=== PATIENT | male | born 1955 | race Caucasian/White ===

== ENCOUNTER 2016-08-09 07:04 | Day surgery (SDC) | payer BC ==
[2016-08-09] MEDS: Lactated Ringers 1,000 ML IV SCH ×2 (08:51→09:58)
[2016-08-09] MEDS ORDERED: Propofol 200 MG/20 ML SDV ONE ×2 (09:11→09:41)
[2016-08-09 11:16] VITALS: BP 127/71
--- NOTE | 2016-08-09 13:55 | OR ---
DATE OF SURGERY: 08/09/2016. REFERRING PROVIDER: Mary Grace Gordon DO. PREOPERATIVE DIAGNOSES: 1. History of colon polyps. Last colonoscopy was 3 years ago and 3 small polyps ranging in size from 1 to 4 mm were removed. 2. Positive family history of colon cancer in the patient's sister, who was diagnosed in her late 40s. POSTOPERATIVE DIAGNOSES: 1. Incomplete colonoscopy, but I was able to reach hepatic flexure. 2. Tortuous transverse colon. 3. Moderately poor prep with copious particular liquid stool present. This was mostly able to be suctioned, but did plug the scope a few times. PROCEDURE: Colonoscopy (but only able to reach the hepatic flexure). SURGEON: Bradley Benavidez M.D. ANESTHESIA: Monitored anesthesia care. BOWEL PREP: Moderately poor. Mickey is a 61-year-old male who was brought to the endoscopy suite after discussing risks and benefits of the procedure. Informed consent was obtained for conscious sedation and colonoscopy with or without biopsy and/or polypectomy. We also discussed possibility of missed lesions. Pre-procedure exam was unremarkable. IV, oxygen, and monitors were placed. The patient was placed in the left lateral decubitus position. Sedation was administered and a digital rectal exam was performed which unremarkable. Colonoscope was passed into the rectum and slowly advanced. The patient had rather tortuous transverse colon. Multiple maneuvers including rolling the patient on his back, with abdominal pressure, scope stiffening were attempted. Entire scope had been inserted, but was only able to reach the hepatic flexure. Photograph was taken at this point, and then the colonoscope was slowly withdrawn and the mucosa was closed observed in a direct circumferential manner. The patient was noted to have moderately poor prep with copious particular liquid stool. Most of this was eventually able to be suctioned out resulting in fair viewing of the remainder of the colon. The transverse colon was unremarkable. The descending colon was unremarkable. The sigmoid colon was unremarkable. Retroflexion was performed, and rectal mucosa was unremarkable. Scope was removed. The patient tolerated the procedure well. The patient was monitored until that baseline status. Discharge instructions were reviewed and the patient was discharged in good condition. COMPLICATIONS: None. TOTAL TIME: 35 minutes. ESTIMATED BLOOD LOSS: None. RECOMMENDATIONS/FOLLOW-UP: After reviewing the patient's previous colonoscopy report, which showed 3 tiny polyps with the largest being 4 mm in size, I think the patient can simply plan a repeat here in the next 2 years. We did also discuss other options including barium enema to view the right colon or having gastroenterology in [place] attempt to intubate the cecum. For the moment, the patient is okay with just early repeat colonoscopy. I do recommend any future scopes be done with propofol sedation given the tortuous transverse colon. I would like to kindly thank Mary Grace Gordon for this referral. DMB: 08/09/2016 11:55:48 MODL: 08/09/2016 13:33:03 /[id number] MTDD
== END 2016-08-09 11:25 | disposition home or self-care (01) ==
LOC: VM.SDS 07:04
PROVIDERS: ATTEND Family Medicine
DX: Q43.8 Other specified congenital malformations of intestine (principal); J30.81 Allergic rhinitis due to animal (cat) (dog) hair and dander; Z91.09 Other allergy status, other than to drugs and biological substances; Z98.890 Other specified postprocedural states; Z79.899 Other long term (current) drug therapy
CPT/HCPCS: 45378; J2704; J7120

== ENCOUNTER 2018-07-08 11:05 | Emergency (ER) | payer BC ==
--- NOTE | 2018-07-08 12:10 | CR ---
[id number] RAD/RAD Chest PA And Lateral EXAM: RAD Chest PA And Lateral INDICATION: SYNCOPE,BRADYCARDIA. COMPARISON: None. DISCUSSION: Cardiomediastinal silhouette is normal in size and contour. No infiltrate, effusion, pneumothorax, or edema. IMPRESSION: No acute cardiopulmonary abnormality. Frank Medrano DO 07/08/18 [id number] Thank you for allowing us to participate in the care of your patient.
[2018-07-08 12:16] LABS: CHLORIDE,CL 102 mmol/L (98-107); SODIUM,NA 138 mmol/L (136-145)
[2018-07-08 12:21] LABS: ANION GAP 12.9 mmol/L (10-20)
[2018-07-08 14:10] VITALS: BP 134/75
--- NOTE | 2018-07-08 15:02 | EDM.PDOC ---
ED HPI GENERAL MEDICAL PROBLEM - General Chief Complaint: Chest Pain Time Seen by Provider: 07/08/18 11:25 Source of Information: Reports: Patient History Limitations: Reports: No Limitations (MrCayden ) - History of Present Illness INITIAL COMMENTS - FREE TEXT/NARRATIVE: Mr. Galeas presents to ER with complaints of sharp substernal chest discomfort, profound diaphoresis, and lightheadedness/near syncope. States that the episode only lasted a few minutes and resolved very abruptly. He states that the discomfort did not radiate into his jaw, arms, neck or back. He was not appreciably short of breath. He denies any nausea. No abdominal pain. Denies any increased peripheral edema. He denies any pervious episodes of chest pain or lightheadedness. He is a non- smoker. He did have a cardiac stress test which did show moderate calcification in his coronaries (calcium index of 190). He does have a history of hyperlipidemia and HTN. He has a remote history of syncope in 2013. Pt. states that he was started on Prozac within the month as well and does have a history of anxiety. Onset: Today Onset Date: 07/08/18 Location: Reports: Chest Quality: Reports: Sharp, Stabbing Severity: Moderate Worsens with: Denies: Breathing Associated Symptoms: Reports: Diaphoresis - Related Data Allergies Allergy/AdvReac Type Severity Reaction Status Date / Time dogs Allergy Other Uncoded 07/08/18 11:21 dust mite extract Allergy Other Uncoded 07/08/18 11:21 grasses Allergy Other Uncoded 07/08/18 11:21 Home Meds: Home Meds Aspirin [Halfprin] 81 mg PO DAILY 08/03/13 [History] Cyanocobalamin (Vitamin B-12) [Vitamin B-12] 1,000 mcg PO DAILY 08/03/13 [ History] Fexofenadine [Berenice] 180 mg PO DAILY 08/03/13 [History] Fluticasone Propionate [Flonase] 2 sprays NASBOTH DAILY 08/03/13 [History] Ibuprofen [Motrin Ib] 400 - 600 mg PO Q4H PRN 08/03/13 [History] Multivitamin [Multivitamins] 1 tab PO DAILY 08/03/13 [History] Pony-3 Fatty Acids [Pony-3] 1,000 mg PO DAILY 08/03/13 [History] atorvaSTATin [Lipitor] 20 mg PO BEDTIME 08/03/13 [History] Ascorbic Acid [Vitamin C] 500 mg PO DAILY 08/13/13 [History] ALPRAZolam [Alprazolam] 0.25 mg PO TID PRN 07/08/18 [History] Beta-Carotene(A) W-C & E/Min [Vision Vitamins] 2 tab PO BID 07/08/18 [History] FLUoxetine [PROzac] 10 mg PO DAILY 07/08/18 [History] Past Medical History HEENT History: Reports: Allergic Rhinitis, Other (See Below) Other HEENT History: presbyopia Cardiovascular History: Reports: High Cholesterol, Syncope Respiratory History: Reports: None Gastrointestinal History: Reports: Colon Polyp Genitourinary History: Reports: None Musculoskeletal History: Reports: Arthritis, Back Pain, Chronic Psychiatric History: Reports: Depression Hematologic History: Reports: None Immunologic History: Reports: None Oncologic (Cancer) History: Reports: Squamous Cell Carcinoma, Other (See Below) Other Oncologic History: skin cancer, basal cell Dermatologic History: Reports: None - Past Surgical History Head Surgeries/Procedures: Reports: None Respiratory Surgical History: Reports: None Male Surgical History: Reports: None Endocrine Surgical History: Reports: None Neurological Surgical History: Reports: None Musculoskeletal Surgical History: Reports: Other (See Below) Dermatological Surgical History: Reports: Skin Biopsy Social & Family History - Family History Family Medical History: Noncontributory - Tobacco Use Smoking Status *Q: Never Smoker - Recreational Drug Use Recreational Drug Use: No ED ROS GENERAL - Review of Systems Review Of Systems: See Below Constitutional: Reports: No Symptoms HEENT: Reports: No Symptoms Respiratory: Reports: No Symptoms Cardiovascular: Reports: Chest Pain, Lightheadedness, Other (near syncope) Endocrine: Reports: No Symptoms GI/Abdominal: Reports: No Symptoms : Reports: No Symptoms Musculoskeletal: Reports: No Symptoms Skin: Reports: No Symptoms Neurological: Reports: No Symptoms Psychiatric: Reports: No Symptoms Hematologic/Lymphatic: Reports: No Symptoms Immunologic: Reports: No Symptoms ED EXAM, GENERAL - Physical Exam Exam: See Below Exam Limited By: No Limitations General Appearance: Alert, WD/WN, No Apparent Distress Throat/Mouth: Normal Inspection, Normal Lips, Normal Teeth, Normal Gums, Normal Oropharynx, Normal Voice, No Airway Compromise Head: Atraumatic, Normocephalic Neck: Normal Inspection, Supple, Non-Tender, Full Range of Motion Respiratory/Chest: No Respiratory Distress, Lungs Clear, Normal Breath Sounds, No Accessory Muscle Use, Chest Non-Tender Cardiovascular: Normal Peripheral Pulses, Regular Rate, Rhythm, No Edema, No Gallop, No JVD, No Rub Peripheral Pulses: 4+: Radial (L), Radial (R), Posterior Tibial (L), Posterior Tibial (R) GI/Abdominal: Normal Bowel Sounds, Soft, Non-Tender, No Organomegaly, No Distention, No Mass (Male) Exam: Deferred Rectal (Males) Exam: Deferred Back Exam: Normal Inspection, Full Range of Motion, NT Extremities: Normal Inspection, Normal Range of Motion, Non-Tender, Normal Capillary Refill, No Pedal Edema Neurological: Alert, Oriented, CN II-XII Intact, Normal Cognition, Normal Gait, Normal Reflexes, No Motor/Sensory Deficits Psychiatric: Normal Affect, Normal Mood Skin Exam: Warm, Dry, Intact, Normal Color, No Rash Lymphatic: No Adenopathy Course - Vital Signs Last Recorded V/S: Last Vital Signs Temp 36.9 C 07/08/18 14:06 Pulse 78 07/08/18 14:06 Resp 18 07/08/18 14:06 BP 134/75 07/08/18 14:06 Pulse Ox 96 07/08/18 14:06 - Orders/Labs/Meds Orders: Active Orders 24 hr Category Date Time Status EKG Documentation Completion [RC] STAT Care 07/08/18 11:30 Active Labs: Laboratory Tests 07/08/18 07/08/18 07/08/18 Range/Units 11:35 11:35 11:35 WBC 6.2 (4.0-10.0) x10^3/uL RBC 5.06 (4.5-6.0) x10^6/uL Hgb 15.8 (14.0-18.0) g/dL Hct 47.1 (40.0-52.0) % MCV 93.1 H (78.0-93.0) fL MCH 31.2 (26.0-32.0) pg MCHC 33.5 (32.0-36.0) g/dL RDW Coeff of Inocencio 13.3 (10.0-15.0) % Plt Count 211 (130-400) x10^3/uL Neut % (Auto) 63.8 (50.0-80.0) % Lymph % (Auto) 22.8 L (25.0-50.0) % Jay % (Auto) 10.7 (2.0-11.0) % Eos % (Auto) 2.4 (0.0-4.0) % Baso % (Auto) 0.3 (0.2-1.2) % PT 11.8 H (9.6-11.4) SEC INR 1.1 L (2.0-3.5) D-Dimer, Quantitative 0.44 (<=0.58) mg/LFEU Sodium 138 (136-145) mmol/L Potassium 3.9 (3.5-5.1) mmol/L Chloride 102 (98-107) mmol/L Carbon Dioxide 27 (21-32) mmol/L Anion Gap 12.9 (10-20) mmol/L BUN 24 H (7-18) mg/dL Creatinine 1.1 (0.70-1.30) mg/dL Est Cr Clr Drug Dosing 75.66 mL/min Estimated GFR (MDRD) > 60 Glucose 112 H (74-106) mg/dL Calcium 9.2 (8.5-10.1) mg/dL Corrected Calcium 9.12 (8.5-10.1) mg/dL Total Bilirubin 0.8 (0.2-1.0) mg/dL AST 23 (15-37) U/L ALT 29 (16-63) U/L Alkaline Phosphatase 80 (46-116) U/L Troponin I < 0.017 (<=0.056) ng/mL C-Reactive Protein 0.2 (<=0.9) mg/dL Total Protein 7.2 (6.4-8.2) g/dL Albumin 4.1 (3.4-5.0) g/dL Globulin 3.1 Albumin/Globulin Ratio 1.32 TSH, Ultra Sensitive 2.054 (0.358-3.74) uIU/mL 07/08/18 Range/Units 13:59 WBC (4.0-10.0) x10^3/uL RBC (4.5-6.0) x10^6/uL Hgb (14.0-18.0) g/dL Hct (40.0-52.0) % MCV (78.0-93.0) fL MCH (26.0-32.0) pg MCHC (32.0-36.0) g/dL RDW Coeff of Inocencio (10.0-15.0) % Plt Count (130-400) x10^3/uL Neut % (Auto) (50.0-80.0) % Lymph % (Auto) (25.0-50.0) % Jay % (Auto) (2.0-11.0) % Eos % (Auto) (0.0-4.0) % Baso % (Auto) (0.2-1.2) % PT (9.6-11.4) SEC INR (2.0-3.5) D-Dimer, Quantitative (<=0.58) mg/LFEU Sodium (136-145) mmol/L Potassium (3.5-5.1) mmol/L Chloride (98-107) mmol/L Carbon Dioxide (21-32) mmol/L Anion Gap (10-20) mmol/L BUN (7-18) mg/dL Creatinine (0.70-1.30) mg/dL Est Cr Clr Drug Dosing mL/min Estimated GFR (MDRD) Glucose (74-106) mg/dL Calcium (8.5-10.1) mg/dL Corrected Calcium (8.5-10.1) mg/dL Total Bilirubin (0.2-1.0) mg/dL AST (15-37) U/L ALT (16-63) U/L Alkaline Phosphatase (46-116) U/L Troponin I < 0.017 (<=0.056) ng/mL C-Reactive Protein (<=0.9) mg/dL Total Protein (6.4-8.2) g/dL Albumin (3.4-5.0) g/dL Globulin Albumin/Globulin Ratio TSH, Ultra Sensitive (0.358-3.74) uIU/mL Departure - Departure Time of Disposition: 15:12 Disposition: Home, Self-Care 01 Clinical Impression: Near syncope, Chest pain - Discharge Information Instructions: Near-Syncope, [id number], Nonspecific Chest Pain, [id number] Referrals: Mary Grace Gordon, [Primary Care Provider] - Forms: ED Department Discharge Additional Instructions: Continue with current medications. Return to ER if you have recurrent chest pain, shortness of breath, or if you feel faint. Jose will be contacting your to set up a stress echo. I did speak with Dr. Gordon and would like to to follow-up with her in the next 7-10 days for recheck. You can wait until after your stress test if you aren't having any symptoms. - Problem List Review Problem List Initiated/Reviewed/Updated: Yes - My Orders Last 24 Hours: My Active Orders 07/08/18 11:30 EKG Documentation Completion [RC] STAT - Assessment/Plan Last 24 Hours: My Active Orders 07/08/18 11:30 EKG Documentation Completion [RC] STAT Plan: Continue with current medications. Return to ER if you have recurrent chest pain, shortness of breath, or if you feel faint. Jose will be contacting your to set up a stress echo. I did speak with Dr. Gordon and would like to to follow-up with her in the next 7-10 days for recheck. You can wait until after your stress test if you aren't having any symptoms.
== END 2018-07-08 14:45 | disposition home or self-care (01) ==
LOC: VM.ED 11:05
DX: R55 Syncope and collapse (principal); R07.2 Precordial pain; E78.00 Pure hypercholesterolemia, unspecified; Z91.09 Other allergy status, other than to drugs and biological substances; Z79.82 Long term (current) use of aspirin; Z79.899 Other long term (current) drug therapy; Z85.828 Personal history of other malignant neoplasm of skin
CPT/HCPCS: 36415; 71046; 80053; 84443; 84484; 85025; 85379; 85610; 86140; 93005; 99285-25

== ENCOUNTER 2018-09-29 08:32 | Day surgery (SDC) | payer BC ==
[~2018-09-29 08:32] MED LIST: Lactated Ringers 1,000 ML IV SCH
[2018-09-29] MEDS ORDERED: Sodium Phosphate,Monobasic/Sodium Phosphate,Dibasic Enema 133 ML Bottle RECTAL ONE (09:42)
[2018-09-29] MEDS ORDERED: Propofol 200 MG/20 ML SDV ONE (11:10)
[2018-09-29] MEDS ORDERED: fentaNYL 100 MCG/2 ML SDV ONE (11:10)
--- NOTE | 2018-09-29 12:02 | OR ---
PREOPERATIVE DIAGNOSES: History of polyps, family history of colon cancer. POSTOPERATIVE DIAGNOSIS: Essentially normal colonoscopic exam, marginal bowel prep. PROCEDURE PROPOSED AND PROCEDURE DONE: Total flexible colonoscopy. INDICATION: This is a 63-year-old gentleman who comes in for colonic surveillance. He has a family history of colon cancer in his sister and he also has had some polyps. He had several polyps removed 2 years ago and he now comes in for a recommended followup exam. TECHNIQUE: The patient was brought to the endoscopy suite, placed in left lateral decubitus position, and the patient was sedated per [employer] with propofol and a flexible video colonoscope was then passed transanally and under visualization advanced to the cecum. Examination revealed normal ascending, transverse, descending, sigmoid, and rectal colon. He did have moderate amount of dark greenish fluid throughout the exam, which required irrigation and suctioning, and I felt that the bowel prep was marginal, but I felt the examination was adequate. There were no signs of any diverticulosis, polyps, colitis, or other abnormalities and the scope was then withdrawn. The patient tolerated the procedure well. FINAL IMPRESSION: 1. Essentially normal colonoscopic exam. 2. Family history of colon cancer - brother. 3. History of polyps. PLAN: I feel that he can wait 5 years now before he needs to have his next colonoscopy. SCM: 09/29/2018 11:38:51 MODL: 09/29/2018 11:52:43 /[id number]
[2018-09-29 12:05] VITALS: BP 117/78
== END 2018-09-29 12:50 | disposition home or self-care (01) ==
LOC: VM.SDS 08:32
PROVIDERS: ATTEND Surgery
DX: Z12.11 Encounter for screening for malignant neoplasm of colon (principal); E78.5 Hyperlipidemia, unspecified; F41.9 Anxiety disorder, unspecified; F32.9 Major depressive disorder, single episode, unspecified; L57.0 Actinic keratosis; M17.12 Unilateral primary osteoarthritis, left knee; M54.5 Low back pain; Z86.010 Personal history of colon polyps; Z80.0 Family history of malignant neoplasm of digestive organs; Z79.1 Long term (current) use of non-steroidal anti-inflammatories (NSAID); Z79.51 Long term (current) use of inhaled steroids; Z79.82 Long term (current) use of aspirin; Z79.899 Other long term (current) drug therapy; Z91.09 Other allergy status, other than to drugs and biological substances
CPT/HCPCS: 45378; J2704; J3010; J7120

== ENCOUNTER 2023-04-21 20:39 | Emergency (ER) | payer MEDICARE, BC ==
[2023-04-21 20:57] VITALS: PULSE 92
[2023-04-21 21:05] LABS: BASOPHILS PERCENT AUTO 0.2 % (0.2-1.2); EOSINOPHILS ABSOLUTE AUTO 0.4 x10^3/uL (0.0-0.5); EOSINOPHILS PERCENT AUTO 4.6 % (0.0-4.0); HEMATOCRIT 43.4 % (40.0-52.0); HEMOGLOBIN 14.8 g/dL (14.0-18.0); IMMATURE GRAN ABSOLUTE AUTO 0.01 x10^3/uL (0.00-0.07); LYMPHOCYTES ABSOLUTE AUTO 2.2 x10^3/uL (1.0-4.8); LYMPHOCYTES PERCENT AUTO 26.5 % (25.0-50.0); MEAN CORPUSCULAR HEMOGLOBIN 31.4 pg (26.0-32.0); MEAN CORPUSCULAR HGB CONC 34.1 g/dL (32.0-36.0); MEAN CORPUSCULAR VOLUME 91.9 fL (78.0-93.0); MONOCYTES ABSOLUTE AUTO 0.8 x10^3/uL (0.0-0.8); MONOCYTES PERCENT AUTO 9.1 % (2.0-11.0); NEUTROPHILS PERCENT AUTO 59.5 % (50.0-80.0); PLATELET COUNT,PLT 213 x10^3/uL (130-400); RED BLOOD CELL COUNT 4.72 x10^6/uL (4.5-6.0); WHITE BLOOD CELL COUNT,WBC 8.4 x10^3/uL (4.0-10.0)
[2023-04-21 21:22] LABS: A/G RATIO 1.13; ALANINE AMINOTRANSFERASE,ALT 50 U/L (16-63); ALBUMIN 3.5 g/dL (3.4-5.0); ALKALINE PHOSPHATASE 96 U/L (46-116); ASPARTATE AMNIOTRANSFERASE,AST 22 U/L (15-37); BILIRUBIN TOTAL 0.3 mg/dL (0.2-1.0); BLOOD UREA NITROGEN,BUN 33 mg/dL (7-18); CALCIUM 8.7 mg/dL (8.5-10.1); CARBON DIOXIDE,CO2 27 mmol/L (21-32); CHLORIDE,CL 104 mmol/L (98-107); CREATININE 1.1 mg/dL (0.70-1.30); GLUCOSE RANDOM 138 mg/dL (70-99); POTASSIUM,K 3.9 mmol/L (3.5-5.1); PROTEIN TOTAL,TP 6.6 g/dL (6.4-8.2); SODIUM,NA 141 mmol/L (136-145)
[2023-04-21 21:23] LABS: ANION GAP 13.9 mmol/L (5-15); ESTIMATED GFR 72 mL/min (>=60)
[2023-04-21 21:40] VITALS: BP 128/69
== END 2023-04-21 21:40 | disposition home or self-care (01) ==
LOC: VM.ED 20:39
DX: R00.2 Palpitations (principal); E78.00 Pure hypercholesterolemia, unspecified; Z79.82 Long term (current) use of aspirin; Z79.899 Other long term (current) drug therapy; Z91.048 Other nonmedicinal substance allergy status
CPT/HCPCS: 36415; 80053; 84484; 85025; 93005; 93010; 99284; 99285

== ENCOUNTER 2023-05-25 09:30 | Emergency (ER) | payer MEDICARE, BC ==
[2023-05-25 14:01] VITALS: BP 125/70; PULSE 63
== END 2023-05-25 10:35 | disposition home or self-care (01) ==
LOC: VM.ED 09:30
DX: H10.9 Unspecified conjunctivitis (principal); E78.00 Pure hypercholesterolemia, unspecified; Z91.048 Other nonmedicinal substance allergy status; Z79.82 Long term (current) use of aspirin; Z79.899 Other long term (current) drug therapy
CPT/HCPCS: 99283

== ENCOUNTER 2024-05-13 19:55 | Emergency (ER) | payer MEDICARE, BC ==
[2024-05-13 20:36] LABS: BASOPHILS PERCENT AUTO 0.5 % (0.2-1.2); EOSINOPHILS ABSOLUTE AUTO 0.7 x10^3/uL (0.0-0.5); EOSINOPHILS PERCENT AUTO 9.7 % (0.0-4.0); HEMATOCRIT 41.7 % (40.0-52.0); HEMOGLOBIN 14.5 g/dL (14.0-18.0); IMMATURE GRAN ABSOLUTE AUTO 0.01 x10^3/uL (0.00-0.07); LYMPHOCYTES ABSOLUTE AUTO 2.4 x10^3/uL (1.0-4.8); LYMPHOCYTES PERCENT AUTO 32.7 % (25.0-50.0); MEAN CORPUSCULAR HEMOGLOBIN 32.5 pg (26.0-32.0); MEAN CORPUSCULAR HGB CONC 34.8 g/dL (32.0-36.0); MEAN CORPUSCULAR VOLUME 93.5 fL (78.0-93.0); MONOCYTES PERCENT AUTO 13.6 % (2.0-11.0); NEUTROPHILS ABSOLUTE AUTO 3.2 x10^3/uL (1.8-7.7); NEUTROPHILS PERCENT AUTO 43.4 % (50.0-80.0); PLATELET COUNT,PLT 217 x10^3/uL (130-400); RED BLOOD CELL COUNT 4.46 x10^6/uL (4.5-6.0); WHITE BLOOD CELL COUNT,WBC 7.4 x10^3/uL (4.0-10.0)
[2024-05-13 21:00] LABS: A/G RATIO 1.16; ALBUMIN 3.7 g/dL (3.4-5.0); BILIRUBIN TOTAL 0.3 mg/dL (0.2-1.0); CALCIUM 8.9 mg/dL (8.5-10.1); CREATININE 1.3 mg/dL (0.70-1.30); EST CRCL DRUG DOSING (CG) 58.9 mL/min; POTASSIUM,K 4.2 mmol/L (3.5-5.1); PROTEIN TOTAL,TP 6.9 g/dL (6.4-8.2)
[2024-05-13 21:15] VITALS: BP 139/88; PULSE 77
[2024-05-13 21:16] LABS: ANION GAP 13.2 mmol/L (5-15)
[2024-05-13 21:21] LABS: CORONAVIRUS COVID-19 NAA NEGATIVE (NEGATIVE); INFLUENZA A NAA NEGATIVE (NEGATIVE); INFLUENZA B NAA NEGATIVE (NEGATIVE); RESPIRATORY SYNCYTIAL VIR NAA NEGATIVE (NEGATIVE)
[2024-05-13] MEDS: Benzonatate 100 MG Cap PO ONE (21:29)
== END 2024-05-13 21:40 | disposition home or self-care (01) ==
LOC: VM.ED 19:55
DX: J06.9 Acute upper respiratory infection, unspecified (principal); I10 Essential (primary) hypertension; E78.00 Pure hypercholesterolemia, unspecified; Z79.899 Other long term (current) drug therapy; Z79.82 Long term (current) use of aspirin; Z91.048 Other nonmedicinal substance allergy status
CPT/HCPCS: 0241U; 36415; 71046; 80053; 85025; 99283; A9270-GY

== ENCOUNTER 2024-06-04 07:44 | Day surgery (SDC) | payer MEDICARE, BC ==
[2024-06-04] MEDS ORDERED: Propofol 200 MG/20 ML SDV ONE ×2 (08:14→08:50)
[2024-06-04] MEDS ORDERED: fentaNYL 100 MCG/2 ML SDV ONE (08:14)
[2024-06-04] MEDS ORDERED: Glycopyrrolate 0.2 MG/ML 2 ML SDV ONE (09:31)
[2024-06-04] MEDS ORDERED: ePHEDrine 50 MG/ML SDV ONE (09:44)
[2024-06-04] MEDS ORDERED: Atropine 0.4 MG/ML SDV ONE (09:44)
[2024-06-04 11:19] VITALS: BP 124/68; PULSE 69
== END 2024-06-04 11:00 | disposition home or self-care (01) ==
LOC: VM.SDS 07:44
PROVIDERS: ATTEND Family Medicine
DX: D12.0 Benign neoplasm of cecum (principal); I10 Essential (primary) hypertension; Z86.0101 Personal history of adenomatous and serrated colon polyps; E78.2 Mixed hyperlipidemia; Z80.0 Family history of malignant neoplasm of digestive organs
CPT/HCPCS: 00811; 88305; 99100; J0461; J2704; J3010; J3490